=== PATIENT | female | born 1970 | race Two or more races ===

== ENCOUNTER 2020-07-18 07:25 | Day surgery (SDC) | payer OTHER ==
[~2020-07-18] VITALS: Ht 154.9 cm; Wt 77.1 kg
[2020-07-18] VITALS (8 sets, daily range): BP systolic 89–119; BP diastolic 47–76
--- NOTE | 2020-07-18 07:30 | Short Stay Surgery H&P ---
History of Present Illness History of Present Illness Chief Complaint Abdominal pains, GERDs HPI Faina Bland is a 49 year old female who was admitted on for GERDS, abdominal pain Patient History PAST MEDICAL HISTORY: (1) Status post carpal tunnel release Review of Systems Cardiovascular: Reports: no symptoms Respiratory: Reports: no symptoms Skeletal: Reports: trauma Gastrointestinal: Reports: no symptoms Genitourinary: Reports: no symptoms Neurologic: Reports: no symptoms Endocrine: Reports: no symptoms Hematologic: Reports: no symptoms Physical Exam Skin: normal HENT: normal Heart: normal Lungs: normal Abdomen: abnormal Extremities: normal Genitourinary: normal Plan Plan of Care Upper GI. endoscopy and biopsy. Preop Interventions None Summary of Findings See the reports. Attestation Are the patient's medical conditions optimized for surgery? Attestation Response: yes Kristine Gaines MD Jul 18, 2020 07:30
--- NOTE | 2020-07-18 07:31 | Pre-Procedure Note/Attestation ---
Pre-Procedure Note/Attestation Complete Prior to Procedure Planned Procedure: left Procedure Narrative: Examination of the upper GI. tract via endoscopy. Indications for Procedure Pre-Operative Diagnosis: R/O Peptic ulcer, gastritis, esophagitis. Attestation I attest that I discussed the nature of the procedure; its benefits; risks and complications; and alternatives (and the risks and benefits of such alternatives), prior to the procedure, with the patient (or the patient's legal volunteer patient representative). I attest that, if there was a reasonable possibility of needing a blood transfusion, the patient (or the patient's legal volunteer patient representative) was given the [place] [facility] [employer] [facility] standardized written summary, pursuant to the Brannon [place] Blood Safety Act ([place] Health and Safety Code # 1645, as amended). I attest that I re-evaluated the patient just prior to the surgery and that t here has been no change in the patient's H&P, except as documented below: Kristine Gaines MD Jul 18, 2020 07:31
[2020-07-18] MEDS ORDERED: fentaNYL 100 mcg/2 mL IV ONE (08:00)
[2020-07-18] MEDS ORDERED: LR 1000ml ONE (08:00)
[2020-07-18] MEDS ORDERED: Midazolam 2mg/2ml Inj ONE (08:07)
[2020-07-18] MEDS ORDERED: ALBUTEROL2.5 MG/3 M INH (08:19)
--- NOTE | 2020-07-18 08:20 | Discharge Instructions ---
Discharge Instructions Discharge Instructions Follow up with: Call the office after 2 weeks forcopy of results For Congestive Heart Failure Reminder Report to your physician any weight gain of 5 pounds or more in one week. Kristine Gaines MD Jul 18, 2020 08:20
[2020-07-18] MEDS ORDERED: ALBUTEROL SULF8.5 G1 INH (08:21)
[2020-07-18] MEDS ORDERED: LEVOTHYROXINE75 MCG ORAL (08:27)
--- NOTE | 2020-07-18 08:33 | Endoscopy Procedure Note ---
Endoscopy Procedure Note General Indication for Procedure: Nausea and epigastric pain after recent COVID 19 inection Procedures Performed: EGD - completely normal Upper GI. endoscopy. Biopsy obtained per random from gastric body. Specimen: yes Pt Tolerated Procedure Well: Yes Estimated Blood Loss: none Anesthesia Anesthesiologist: Dr. Durand Anesthesia: moderate sedation Medications Medication Given: see anesthesia record Inserted Devices Implant(s) used?: No Quality Quality of Bowel Preparation: Excellent Was there any complications?: No GI Core Measures 50 yrs or older w/o bx or poly: Not Applicable 10yrs. F/U recommended: Not Applicable If not recommended, why?: Med reason:<3 yrs.: System Reason:<3 yrs.: Kristine Gaines MD Jul 18, 2020 08:33
--- NOTE | 2020-07-18 08:49 | Anethesia Preoperative Eval ---
Anesthesia Pre-op PMH/ROS General Date of Evaluation: Jul 18, 2020 Time of Evaluation: 08:11 Anesthesiologist: Enrique ASA Score: ASA 2 Mallampati Score Class I : Soft palate, uvula, fauces, pillars visible Class II: Soft palate, uvula, fauces visible Class III: Soft palate, base of uvula visible Class IV: Only hard plate visible Mallampati Classification: Class II Surgeon: Moraima Diagnosis: Abdominal pain Surgical Procedure: EGD Anesthesia History: none Social History: alcohol use Family History: no anesthesia problems Allergies: Coded Allergies: CODEINE (Verified Allergy, Intermediate, hives, 07/18/20) Medications: see eMAR Patient NPO?: Yes Past Medical History Cardiovascular: Denies: HTN, CAD, LA, valve dz, arrhythmia, other Pulmonary: Reports: asthma - mild stable on inhaler; Denies: COPD, ROMAINE, other Gastrointestinal/Genitourinary: Reports: GERD Neurologic/Psychiatric: Denies: dementia, CVA, depression/anxiety, TIA, other Endocrine: Reports: hypothyroidism HEENT: Denies: cataract (L), cataract (R), glaucoma, [place] (L), [place] (R), other Hematology/Immune: Denies: anemia, DVT, bleeding disorder, other Musculoskeletal/Integumentary: Denies: OA, RA, DJD, DDD, edema, other Other: obesity PMH Narrative: as above PSxH Narrative: cholecystectomy, carpal tunnels Anesthesia Pre-op Phys. Exam Physician Exam Last Vital Signs Date Time Temp Pulse Resp B/P (MAP) Pulse Ox O2 Delivery O2 Flow Rate FiO2 07/18/20 08:15 Room Air 07/18/20 08:01 97.8 66 18 119/76 100 Constitutional: NAD Neurologic: CN 2-12 intact Cardiovascular: RRR, no M/R/G Respiratory: CTA Gastrointestinal: other Airway Exam Mallampati Score: Class II MO: full Neck: short ROM: full Teeth: intact Dentures: no upper, no lower Anesthesia Pre-op A/P Labs Urine Test Test 07/18/20 07:33 Urine HCG, Qualitative Negative (NEGATIVE) Risk Assessment & Plan Assessment: ASA 2 Plan: Jim Miguel MD Jul 18, 2020 08:49
--- NOTE | 2020-07-18 08:51 | Immediate Post-Op Evaluation ---
Immediate Post-Op Evalulation Immediate Post-Op Evalulation Procedure: EGD with Bx Date of Evaluation: Jul 18, 2020 Time of Evaluation: 08:49 IV Fluids: 300 Blood Products: none Estimated Blood Loss: none Urinary Output: none Blood Pressure Systolic: 98 Blood Pressure Diastolic: 56 Pulse Rate: 62 Respiratory Rate: 10 O2 Sat by Pulse Oximetry: 99 Temperature (Fahrenheit): 97.6 Pain Score (1-10): 1 Nausea: No Vomiting: No Complications none Patient Status: awake, patent, none Hydration Status: adequate Jim Nunez MD Jul 18, 2020 08:50
--- NOTE | 2020-07-18 09:28 | 48 Hour Post Anesthesia Eval ---
Post Anesthesia Evaluation Procedure: EGD with Bx Date of Evaluation: Jul 18, 2020 Time of Evaluation: 09:26 Blood Pressure Systolic: 98 0: 56 Pulse Rate: 68 Respiratory Rate: 18 Temperature (Fahrenheit): 97.6 O2 Sat by Pulse Oximetry: 98 Airway: patent Nausea: No Vomiting: No Pain Intensity: 1 Hydration Status: adequate Cardiopulmonary Status: stable Mental Status/LOC: patient returned to baseline Follow-up Care/Observations: n/a Post-Anesthesia Complications: none Follow-up care needed: ready to discharge Jim Nunez MD Jul 18, 2020 09:27
[2020-07-18] MEDS ORDERED: Albuterol 90mcg Inhaler 8gm INH SCH (09:30)
--- NOTE | 2020-07-18 09:30 | Pre-op HX & Phy Repo 2 SIG ---
DATE OF ADMISSION: 07/18/2020 HISTORY OF PRESENT ILLNESS: The patient is a 49-year-old female who is being seen prior to undergoing the procedure for upper GI endoscopy examination for which she has been scheduled to receive for evaluation of her gastrointestinal symptoms that she has recently started to experience subsequent to her COVID-19 infection. I had the opportunity of examining this patient almost three weeks ago in my office as she had been referred for evaluation of her symptoms which has basically included nausea and vomiting episodes and epigastric pain that she never had before and she reported that she recently started to have symptoms after being diagnosed to have positive COVID-19 infection for which she was hospitalized almost for five days in February 2020. 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 She reported that it was in February she was found to be positive with the symptoms of infection of the COVID-19 for which she was hospitalized almost for five days in the hospital. She started to have, however, symptoms of GI tract presenting with nausea and vomiting episodes and abdominal pain that she never had before. She denied having taken any nonsteroidal anti-inflammatory agents either. At this time, the patient still continues to have symptoms of nausea and experiencing pain over the upper part of the abdomen and epigastric area. She reported that she was also taking some antacids and PPIs, which do not seem to be working for her. She started to also receive antinausea medications such as Zofran as well. At this time, she denies having any diarrhea or constipation. There has been no history of rectal bleeding, upper gastrointestinal bleeding, etc. She denies having any cough or chills or fever at this point either. She reports that she is currently under the care of Dr. Forrest Hawk, who has been seeing the patient for her basic symptoms of post COVID infection. As I mentioned, she has also been treated with Protonix, however, she does constantly experience symptoms of upper GI tract, as I mentioned. PAST MEDICAL HISTORY: Only positive for asthma. PAST SURGICAL HISTORY: She has had history of carpal tunnel syndrome release. ALLERGIES: Codeine. FAMILY HISTORY: Nonsignificant. HABITS: She denies smoking cigarettes or drinking alcohol. MEDICATIONS: Protonix, Zofran, promethazine, albuterol spray. She occasionally takes steroid tablets as well for the asthma condition. REVIEW OF SYSTEMS: Basically history of present illness as the patient also complains of headaches. However, she also has symptoms of shortness of breath due to the history of asthma, but no cough. She denies having any chest pain or any musculoskeletal symptoms such as arthritis. Psychologically, she denies having any depression or anxiety at this time. PHYSICAL EXAMINATION: GENERAL: At this time reveals alert and well-oriented, very pleasant female, who does not seem to be in any acute distress. She understands the questions and answers "quite properly." She looks overweight. VITAL SIGNS: Blood pressure 119/76, temperature 97.8, pulse rate 66 per minute, respiratory rate 18 per minute. Oxygen saturation on room air is 100%. HEENT: Normocephalic. Pupils are equal in size and reactive to light and accommodation. No visible jaundice. Buccal cavity, tongue midline, well hydrated. No ulcers. NECK: Supple. No JVD, thyromegaly, or adenopathy. CHEST: Clear to auscultation and percussion. No rales or rhonchi. HEART: S1, S2 normal. Regular rhythm. No gallops or murmur. ABDOMEN: Soft, but obese. There is areas of tenderness over the epigastric area. No organomegaly or masses found. No rebound phenomenon. EXTREMITIES: Unremarkable. CENTRAL NERVOUS SYSTEM: Unremarkable. INITIAL PRE-ENDOSCOPIC IMPRESSION: 1. Abdominal pain, epigastric pain of uncertain etiology, rule out gastroesophageal reflux versus gastritis or peptic ulcer disease. 2. Status post COVID-19 infection (resolved). 3. History of asthma, stable. 4. Obesity. RECOMMENDATIONS: At this time, I feel that the applicant is stable to undergo the procedure of upper GI endoscopy, which was explained to her. She understands the risks and benefits and will sign the consent for the procedure. Said Waylon Gaines DR: MELIDA JOB#: [id number] CC:
--- NOTE | 2020-07-18 09:45 | Operative Note - Dictated ---
DATE OF OPERATION: 07/18/2020 SURGEON: Kristine Gaines MD. PROCEDURE: Esophagogastroduodenoscopy with biopsy. PREOPERATIVE DIAGNOSIS: History of recent COVID-19 infection, presenting with nausea, vomiting, and epigastric pain, rule out peptic ulcer disease, gastritis. POSTOPERATIVE DIAGNOSIS: Completely normal upper GI endoscopic examination and biopsy was taken per random from gastric body. MEDICATION USED: Per Dr. Nunez. INSTRUMENT: GIF Olympus upper GI video endoscope. DESCRIPTION OF PROCEDURE: The patient after arriving in the endoscopy unit, was told about risks and benefits of the procedure, which she accepted and signed informed consent. At this time, she was put on the left lateral decubitus position. After adequate IV sedation, the scope was gently passed through the cricopharyngeal area and was lodged into the upper esophagus and was gradually advanced towards gastroesophageal junction. The entire length of esophagus was completely normal. No evidence of varices, inflammatory process, ulceration, or exudate, etc. was noted. GE junction also looked completely normal without any evidence of Ritchie's or hiatal hernia. At this time, the scope was advanced into the stomach. Gastric cavity was distended with insufflation of air. Gradually areas from the fundus and the body of the stomach all the way to the antrum were examined and the gastric mucosa looked completely normal. No evidence of any inflammatory process, ulcers, tumors, polyps, etc. was found. No angiodysplasia noted. A retroflexion maneuver was applied and the area of the gastroesophageal junction was examined also in a closer fashion, which revealed no abnormalities. Finally, after obtaining a random biopsy from gastric body, scope was gradually advanced towards the antrum and from there into the pylorus. First and second portion of duodenum were found to be also within normal limits. Finally, at this point, the scope was pulled out and the procedure was terminated. The patient tolerated the procedure well and left the endoscopy room in a good condition. Kristine Gaines M.D. DR: MELIDA JOB#: [id number] CC:
== END 2020-07-18 10:45 | disposition home or self-care (01) ==
LOC: GAS 07:25
DX: R11.2 Nausea with vomiting, unspecified (principal); R10.13 Epigastric pain; Z86.19 Personal history of other infectious and parasitic diseases; Z88.6 Allergy status to analgesic agent; E66.9 Obesity, unspecified; R51 Headache; K21.9 Gastro-esophageal reflux disease without esophagitis; E03.9 Hypothyroidism, unspecified; Z90.49 Acquired absence of other specified parts of digestive tract; K29.50 Unspecified chronic gastritis without bleeding; B96.81 Helicobacter pylori [H. pylori] as the cause of diseases classified elsewhere
CPT/HCPCS: 43239; 81025; 94003; J2250; J2704; J3010; J7120; U0002; 94150